=== PATIENT | female | born 1990 | race Hispanic/Latino ===

== ENCOUNTER 2019-11-16 19:21 | Inpatient (IN) | payer BC, OTHER ==
[2019-11-16] MEDS ORDERED: Promethazine HCl 25 MG/ML VIAL IM PRN (19:51)
[2019-11-16] MEDS ORDERED: Carboprost 250 MCG/ML AMP IM PRN (19:51)
[2019-11-16] MEDS ORDERED: Ondansetron PF 4 MG/2 ML Vial IVP PRN (19:51)
[2019-11-16] MEDS ORDERED: Diphenoxylate HCl/Atropine Tablet PO PRN (19:51)
[2019-11-16] MEDS ORDERED: Ibuprofen 800 MG TAB PO PRN (19:51)
[2019-11-16] MEDS ORDERED: hydrALAZINE 20 MG/ML VIAL SLOW IVP PRN ×2 (19:51→23:15)
[2019-11-16] MEDS ORDERED: Methylergonovine 0.2 MG/ML VIAL IM PRN (19:51)
[2019-11-16] MEDS ORDERED: Lidocaine 1% (PF) 30 ML VIAL SC PRN (19:51)
[2019-11-16] MEDS ORDERED: Misoprostol 200 MCG TAB PR PRN (19:51)
[2019-11-16] MEDS ORDERED: NS / Oxytocin 40 units/1000ml 1,000 ML ONE (19:55)
[2019-11-16] MEDS ORDERED: Lidocaine 1% (PF) 30 ML VIAL ONE (19:55)
[2019-11-16] MEDS ORDERED: Penicillin G Potassium 5 MILL.UNITS VIAL ONE (19:57)
[2019-11-16] MEDS ORDERED: Penicillin G Potassium 5 MILL.UNITS in Sodium Chloride 0.9% 100 ML IVPB SCH (20:00)
[2019-11-16 20:01] VITALS: BMI 26.7
[2019-11-16] MEDS: Lactated Ringer's 1,000 ML IV SCH (20:02)
[2019-11-16 20:15] LABS: Hemoglobin 12.8 g/dL (12.0-16.0); Mean Corpuscular HGB CONC 34.4 g/dL (32.0-36.0); Mean Corpuscular Volume 84.3 fL (78.0-98.0); Mean Platelet Volume 12.8 fL (7.4-10.4); Platelet Count 162 thou/uL (130-400); RBC Distribution Width 11.9 % (11.5-14.5); Red Blood Cell (RBC) Count 4.41 mill/uL (4.20-5.40); White Blood Cell (WBC) Count 11.6 thou/uL (4.8-10.8)
[2019-11-16 20:51] LABS: Syphilis Antibody Nonreactive (Nonreactive); Syphilis Antibody Index 0.05 S/CO (<1.00 Non-Reactive)
[2019-11-16] MEDS: NS / Oxytocin 40 units/1000ml 1,000 ML IV PRN ×2 (20:59→21:40)
--- NOTE | 2019-11-16 21:14 | PDOC.FPROB ---
FMR OB H&P: HPI - History of Present Illness Chief Complaint: Active Labor History of Present Illness: 29 y/o at 36.1 wga dated by 11.4 wk sono in active labor. She stated that today she was feeling increasing contractions and vaginal pressure. She admitted to baby moving, however, denied LOF and vaginal bleeding and discharge. States that she has had no complications in this . Denied CP and palpitations, SOB, changes in her vision. Prior was a normal . 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: -no hx of STDs - Surgical History Sx History: -none - Social History Social History: -no drugs/etoh/tobacco use -works at [employer] - Family History Family History: -mother and father alive FMR OB H&P: Medications - Current Home Medications: Medication Instructions Recorded Confirmed Type Pnv No.95/Ferrous Fum/Folic AC 1 tab PO DAILY 02/21/14 11/16/19 History [ Tablet] Allergies/Adverse Reactions: Allergies Allergy/AdvReac Type Severity Reaction Status Date / Time No Known Drug Allergies Allergy Verified 11/16/19 19:47 FMR OB H&P: ROS - Review of Systems General: denies: fever/chills, fatigue Eyes: denies: vision changes ENT: denies: rhinorrhea, sinus pain/pressure, sore throat Cardiovascular: denies: chest pain, palpitation Respiratory: denies: cough, shortness of breath Gastrointestinal: reports: cramping. denies: nausea, vomiting, constipation Genitourinary (Female): reports: contractions, vaginal pressure. denies: incontinence, dysuria, polyuria, hesitancy, vaginal bleeding Musculoskeletal: reports: pain Neurologic: denies: numbness, syncope Integumentary: denies: itching, rash, lesions FMR OB H&P: Vital Signs - Maternal Vital signs: Vital Signs - First Documented Temp Pulse Resp BP 98.7 F 78 20 117/62 11/16/19 19:44 11/16/19 19:44 11/16/19 19:44 11/16/19 19:44 - Heart Tones Baseline: 140 Category: category 1 FMR OB H&P: Physical Exam - Physical Exam General: NAD, awake, alert and oriented HEENT: normocephalic and atraumatic, PERRLA, grossly normal vision Neck: supple Chest: non-tender to palpation Heart: RRR, normal S1/S2, no murmurs/rubs/gallops General: CTAB, no respiratory distress, good air movement, no wheezing, no retractions Abdomen: gravid Musculoskeletal: normal gait and station, pulses present Neurological: cranial nerves II through XII intact Skin: no rash, good tugor Psychiatric: intact recent and remote memory, good judgement and insight, normal mood and affect - Pelvic Exam Membranes: intact FMR OB H&P: Results - Labs Lab results: Laboratory Results - last 24 hr 11/16/19 11/16/19 11/16/19 20:00 20:00 20:00 WBC 11.6 H RBC 4.41 Hgb 12.8 Hct 37.2 MCV 84.3 MCH 29.0 MCHC 34.4 RDW 11.9 Plt Count 162 MPV 12.8 H Syphilis IgG/IgM Ab Nonreactive Blood Type O POSITIVE Antibody Screen NEGATIVE FMR OB H&P: A/P Discussion: Date/Time: 11/16/192113 29 y/o @ 36.1 wga dated by 11.4 wk sono in active labor. 1. sIUP active labor -SVE /+2 -LGA fetus based on clinic notes Hadlock was 88.1% on 10/31 - labs negative -based on chart review quad screen was low risk -membranes still intact, will consider AROM if not progressing -continue to manage labor 2. GBS unknown -swab was preformed on 11/14 awaiting results -treated with PCN 3. Excessive Weight gain -noted on chart review -as above 4. Anemia of -noted on chart review -3T labs wnl -continue to monitor This H&P was discussed with Dr. Stringer and Dr. Valdez who agree with the above documentation and plan. Addendum - Attending - Attending Attestation Date/Time: 11/17/19 7285 I personally evaluated the patient and discussed the management with Dr. Kulkarni . I agree with the History, Examination, Assessment and Plan documented above with any addition or exceptions noted below. Patient seen and evaluated on 11/15 prior to delivery.
--- NOTE | 2019-11-16 21:19 | PDOC.OP ---
Operative Note - Operative Note Operative Note: Delivering Physician: katharine Kulkarni supervising Attending: Courtney Procedure: Spontaneous Vaginal Delivery Anesthesia: epidural, Local for Repair QBL: 280 ml Pre-op Diagnosis: 1. Pre-term intrauterine in labor Post-op Diagnosis: 1. Pre-term intrauterine , delivered Indications: A 29 y/o female G 2 P 1001 presents in active labor Delivery Note: This is 29 yo F G 2 P1001 @ 36.1 wks who delivered a viable F at 20:54. Following an uneventful antepartum course, a vigorous F was delivered over an intact perineum in the left occipitoanterior position. Anterior Shoulder and then remainder of the body delivered. No nuchal cord. The head was held down and mouth and nares were bulb suctioned. Cord clamped and cut and cord blood collected. Placenta delivered intact in the Mata presentation with a 3 vessel cord noted. Fundal massage was performed and the fundus was firm. The cervix and vagina were inspected and found to have one small grade 1 laceration (hemostatic). Infant went to nursery in good condition for routine care. Apgars were 7 / 9 at 1 & 5 minutes, respectively. Patient tolerated delivery well and went to after routine recovery/ care. ATTENDING ADDENDUM See my dictated note for details.
[2019-11-16 21:25] LABS: Actual Bicarbonate (HCO3a) 22.1 mEq/L (22-28); Base Excess (BEa) -4.1 mEq/L (-2.0 to +3.0)
[2019-11-16 21:28] LABS: Actual Bicarbonate (HCO3v) 22 mEq/L (22-28); Base Excess -3.6 mEq/L (-2.0 to +3.0); pH (Cord, venous) 7.34 (7.32-7.43)
[2019-11-16 21:37] LABS: HBSAg Index 0.15 S/CO (0-0.99); Hep B Surf Ag Non-Reactive S/CO (NonReactive)
--- NOTE | 2019-11-16 21:59 | DN ---
DATE OF PROCEDURE: 11/16/2019 DELIVERING RESIDENTS: 1. Alexandrea Kulkarni DO. 2. Derek Pierson MD. 3. Quinn Stringer MD. PROCEDURE: Spontaneous vaginal delivery. ANESTHESIA: None. QBL: 280 mL. PREOPERATIVE DIAGNOSES: 1. intrauterine at 36.1 weeks. 2. Concern for LGA fetus. 3. GBS unknown. 4. Anemia of . 5. History of prior term delivery. 6. Excessive maternal weight gain during . POSTPROCEDURE DIAGNOSES: 1. intrauterine at 36.1 weeks, delivered. 2. LGA infant. 3. GBS unknown. 4. Anemia of . 5. History of prior term delivery. 6. Excessive maternal weight gain during . INDICATIONS: Ms. Sidney Dupont is a pleasant 29-year-old, 2, para 1, at 36.1 weeks, who presented to Labor and Delivery at 9 cm dilation. Given that she was GBS unknown, penicillin 5 million units were given. No steroids were given at this time due to the concern for imminent delivery. DESCRIPTION OF PROCEDURE: After an uneventful antepartum course, a viable female was delivered in the occiput anterior position at 4 hours. However, as the baby was , it was noted that the infant had difficulty restituting. The eventually restituted with the occiput to maternal left. At this point, Dr. Pierson attempted to deliver the anterior shoulder, but was unsuccessful. After two attempts, I stepped in and I was able to successfully deliver the 's anterior shoulder without any additional dystocia maneuvers. At this point, the infant was noted to be apneic after the delivery and the cord was quickly cut and clamped and the transferred to the warmer for resuscitative measures. The required drying and stimulation before she appeared to be normal. Cord segment was obtained for cord gas. Cord blood was also collected and sent to lab for analysis. The fundal massage was applied and the third stage of labor was actively manage. Placenta was delivered at 2101 hours in the Schultze presentation. The cervix and vagina were inspected and a small hemostatic first-degree perineal laceration was noted. Placenta was inspected and noted to be intact with 3- vessel cord. Placenta was subsequently discarded. The infant went to the nursery for routine recovery and care. The patient went to unit after routine recovery and care. FINDINGS: 1. Grossly normal viable female infant with Apgars of 7 and 9 at 1 and 5 minutes respectively. She does grossly appear to be LGA, but is pending her weight at this time. 2. Intact placenta with 3-vessel cord discarded. Calcifications were noted throughout the placenta. 3. Arterial and venous cord blood gas were normal. 4. I was present for and attended the entire delivery and agree with the documentation performed by Dr. Kulkarni unless otherwise stated above. Job ID: [id number] MTDD
[2019-11-16] MEDS ORDERED: NS / Oxytocin 40 units/1000ml 1,000 ML IV SCH (23:15)
[2019-11-16] MEDS ORDERED: Bisacodyl 10 MG SUPP PR PRN (23:15)
[2019-11-16] MEDS ORDERED: Milk Of Magnesia 30 ML UDCUP PO PRN (23:15)
[2019-11-16] MEDS ORDERED: Penicillin G 2.5 MILL.units 2.5 MILL.UNITS in Premix Bag 1 BAG IVPB SCH (23:59)
[2019-11-17 05:08] LABS: #Monocytes 0.8 thou/uL (0.11-0.59); #Neutrophils 14.2 thou/uL (1.40-6.50); %Basophils 0.2 % (0.0-1.0); %Eosinophils 0.2 % (0.0-10.0); %Lymphocytes 11.7 % (21.0-51.0); %Monocytes 4.7 % (0.0-10.0); %Neutrophils 83.2 % (42.0-75.0); Hemoglobin 12.2 g/dL (12.0-16.0); Mean Corpuscular HGB CONC 33.5 g/dL (32.0-36.0); Mean Corpuscular Hemoglobin 28.8 pg (27.0-31.0); Mean Platelet Volume 11.2 fL (7.4-10.4); Platelet Count 141 thou/uL (130-400); RBC Distribution Width 11.8 % (11.5-14.5); Red Blood Cell (RBC) Count 4.25 mill/uL (4.20-5.40)
[2019-11-17] MEDS: Lactated Ringer's 1,000 ML IV SCH ×4 (05:49→21:29)
[2019-11-17] MEDS: Ibuprofen 800 MG TAB PO SCH ×3 (05:52→21:18)
--- NOTE | 2019-11-17 07:55 | PDOC.PP ---
Post Progress Note Post Day #: 1 Subjective: 29 y/o now 1102 delivered a LGA @ 36.1 wks dated with 1T von, on 11/15 via voiding urine well has lochia slightly more than normal period for her. denies abd pain. able to ambulate well. no BM yet. breast feeding, infant latching well. She breast fed first born child as well. PO intake tolerated: yes Ambulation: yes Vital Signs (12 hours) Temp Pulse Resp BP 11/17/19 05:54 98.1 F 66 12 122/58 L 11/17/19 02:02 98.4 F 55 L 14 117/60 11/17/19 00:44 98.4 F 63 14 115/58 L 11/16/19 23:26 98.7 F 68 14 114/70 Weight Weight 69.4 kg - Physical Examination General: NAD Cardiovascular: no m/r/g, RRR Respiratory: clear to auscultation bilaterally, non-labored breathing Abdominal: + bowel sounds, lochia, no distention, appropriately TTP Extremities: negative homans (B) Perineum: lochia moderate on pad. Neurological: no gross focal deficits Psychiatric: A&Ox3, normal affect Result Diagrams: 11/17/19 05:00 Additional Labs: Post Labs Blood Type O POSITIVE 11/16/19 20:00 Hep Bs Antigen Non-Reactive S/CO (NonReactive) 11/16/19 20:00 - Assessment/Plan 29 y/o @ 36.1 wga dated by 11.4 wk von in active labor. 1. Day #1 -SVA on 11/15 -LGA fetus 35 - labs negative - plan to keep for 48 hours. 2. GBS status unknown -swab was preformed on 11/14 awaiting results -treated with PCN X1 dose inadequate. -monitor vital signs closely. 3. LGA fetus born pretgerm @ 36.1 weeks. -infant doing well 4. Anemia of -noted on chart review -3T labs wnl -no s/s of anemia present - AM hg 17, likely elevated due to heme concentrated. Po hydration Case discussed with ATtending physician, hwo is in agreement with above stated plan. Addendum - Attending - Attending Attestation Date/Time: 11/17/19 0879 I personally evaluated the patient and discussed the management with Dr. Brooks. I agree with the History, Examination, Assessment and Plan documented above with any addition or exceptions noted below. Progressing well. anticipate d/c tomorrow.
[2019-11-17] MEDS: Ferrous Sulfate 325 MG TAB PO SCH ×2 (08:28→18:41)
[2019-11-17] MEDS ORDERED: Adacel (T-DAP) 0.5 ML SYRINGE IM ONE (09:00)
[2019-11-17] MEDS: Docusate Calcium (SURFAK) 240 MG CAP PO SCH ×2 (09:48→21:18)
[2019-11-17 11:47] LABS: SARS-CoV-2 MS2 Positive; SARS-CoV-2 N Gene Negative; SARS-CoV-2 S Gene Negative; SARS-CoV-2 by NAA Not Detected (NotDetected); SARS-CoV-2 orf1ab Negative
[2019-11-18] MEDS: Ibuprofen 800 MG TAB PO SCH ×2 (05:27→14:13)
--- NOTE | 2019-11-18 07:14 | PDOC.PP ---
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 PO intake tolerated: yes Flatus: yes Ambulation: yes Vital Signs (12 hours) Temp Pulse Resp BP Pulse Ox 11/17/19 20:00 98.0 F 66 16 99/54 L 99 Weight Weight 69.4 kg - Physical Examination General: NAD Cardiovascular: no m/r/g, RRR Respiratory: clear to auscultation bilaterally, non-labored breathing Abdominal: + bowel sounds, lochia, no distention, appropriately TTP Fundus firm & at: umbilicus Extremities: negative homans (B) Deviation from normal: no peripheral edema Neurological: no gross focal deficits Psychiatric: A&Ox3, normal affect Result Diagrams: 11/17/19 05:00 Additional Labs: Post Labs Blood Type O POSITIVE 11/16/19 20:00 Hep Bs Antigen Non-Reactive S/CO (NonReactive) 11/16/19 20:00 (1) Vaginal delivery Status: Acute - Assessment/Plan 29 y/o @ 36.1 wga dated by 11.4 wk sono in active labor. 1. Day #2 - on 11/15 -LGA fetus 3596 g, near shoulder dystocia. - labs negative - plan to d/c home today with close f/u at [facility] tomorrow. - COVID neg. 2. GBS status unknown -swab was preformed on 11/14 awaiting results -treated with PCN X1 dose inadequate. -monitor vital signs closely. 3. LGA fetus born @ 36.1 weeks. - doing well 4. Anemia of -3T labs wnl -no s/s of anemia present - AM hg 17, likely elevated due to heme concentrated. Po hydration - Repeat h/h at PP visit. Case discussed with Attending physician, who is in agreement with above stated plan. Plan d/c home today or B&B if requires longer stay. Addendum - Attending - Attending Attestation Date/Time: 11/18/19 1141 I personally evaluated the patient and discussed the management with Dr. Brooks I agree with the History, Examination, Assessment and Plan documented above with any addition or exceptions noted below - Patient without complaints. Ambulating, voiding. Afebrile VSS. A/P: PPD#2 s/p - plan to d/c home later today.
[2019-11-18] MEDS: Ferrous Sulfate 325 MG TAB PO SCH ×2 (07:34→17:13)
[2019-11-18] MEDS: Docusate Calcium (SURFAK) 240 MG CAP PO SCH (08:43)
[2019-11-18 09:21] VITALS: BP 108/66; TEMP 97.8
[2019-11-18] MEDS: Lactated Ringer's 1,000 ML IV SCH (10:38)
== END 2019-11-18 19:11 | disposition home or self-care (01) | DRG 807 ==
LOC: L&D/OP 19:21 → L&D 19:54 → 3SW 11-17 04:59
PROVIDERS: ADMIT Family Medicine; ATTEND Family Medicine
PROC: 10E0XZZ Delivery of Products of Conception, External Approach (ICD-10-PCS; principal; 2019-11-16)
PROC: 0HQ9XZZ Repair Perineum Skin, External Approach (ICD-10-PCS; 2019-11-16)
PROC: 10907ZC Drainage of Amniotic Fluid, Therapeutic from Products of Conception, Via Natural or Artificial Opening (ICD-10-PCS; 2019-11-16)
DX: O60.14X0 Preterm labor third trimester with preterm delivery third trimester, not applicable or unspecified (principal); Z37.0 Single live birth; Z3A.36 36 weeks gestation of pregnancy; O70.0 First degree perineal laceration during delivery; O99.02 Anemia complicating childbirth; O36.63X0 Maternal care for excessive fetal growth, third trimester, not applicable or unspecified
CPT/HCPCS: 36415; 82805; 85025; 85027; 86780; 86850; 86900; 86901; 87340; 87635; 99285; J2001; J2540; U0003